=== PATIENT | male | born 1980 | race Caucasian/White ===

== ENCOUNTER 2022-07-03 19:32 | Emergency (ER) | payer OTHER ==
[~2022-07-03] VITALS: Ht 175.3 cm; Wt 58.1 kg
[2022-07-03 19:40] VITALS: BP 113/64
[2022-07-03] MEDS ORDERED: TETANUS,DIPTH,PERTUSS P/F (BOOSTRIX) 0.5 ML VIAL IM ONE (20:00)
--- NOTE | 2022-07-03 20:11 | ED Integumentary General ---
General Chief Complaint: Skin/Wound Problems Stated Complaint: RIGHT HAND INJ Nursing Triage Note: PT AMB TO [facility] OF W REPORTS OF LEFT INDEX FINGER CUT BY BOX KNIFE AT APPROX 1915 THIS PM. PT REPORTS UNK TETANUS STATUS, SUPERFICIAL CUT NOTED DURING TRIAGE. PT A&OX4. Source: patient Exam Limitations: no limitations History of Present Illness Date Seen by Provider: July 03, 2022 Time Seen by Provider: 19:59 Initial Comments Patient cut his left index finger with a box knife. Does not know when his last tetanus shot was. No other injuries. All other systems reviewed and negative except documented per HPI. Voice recognition software was used to help create this chart Allergies and Home Medications Allergies Coded Allergies: No Known Drug Allergies (Unverified , 07/03/22) Patient Home Medication List Home Medication List Reviewed: Yes Review of Systems Review of Systems Constitutional: see HPI Past Acmcknl-Ucdaph-Vdgana Hx Patient Social History Tobacco Use?: No Use of E-Cig and/or Vaping dev: No Substance use?: No Alcohol Use?: No Immunizations Up To Date Influenza Vaccine Up-to-Date: Yes; Up-to-Date First/Initial COVID19 Vaccinat: UNK Second COVID19 Vaccination Noel: UNK Third COVID19 Vaccination Date: UNK COVID19 Vaccine 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 Skin motor and sensory intact.) Progress/Results/Core Measures Results/Orders My Orders Orders - NGOC HERNÁNDEZ DO Hand 3 View Right (07/03/22 19:35) Dipht,Pertuss(Acell),Tet Adult (Boostrix (07/03/22 20:00) Medications Given in ED Current Medications Medications Dose Ordered Sig/Karson Route Start Time Stop Time Status Last Admin Dose Admin Diphtheria/ Tetanus/Acell Pertussis 0.5 ml ONCE ONCE IM 07/03/22 20:00 07/03/22 20:01 DC 07/03/22 20:05 0.5 ML Vital Signs/I&O 07/03/22 19:40 Temp 36.1 Pulse 97 Resp 18 B/P (MAP) 113/64 (80) Pulse Ox 98 O2 Delivery Room Air Blood Pressure Mean: 80 Departure Communication (Admissions) Wound does not require stitches. Tetanus updated. Impression Primary Impression: Abrasion of left index finger Qualified Codes: S60.411A - Abrasion of left index finger, initial encounter Disposition: HOME, SELF-CARE Condition: Stable Departure-Patient Inst. Referrals: NO,LOCAL PHYSICIAN (PCP) Primary Care Physician Patient Instructions: Abrasions ED Add. Discharge Instructions: Your wound does not require stitches. Keep it covered when working to avoid contamination. Wash your hands frequently. Your tetanus shot was updated today. Return to the emergency department for any redness streaking up your hand or arm or drainage looks like pus All discharge instructions reviewed with patient and/or family. Voiced understanding. NGOC HERNÁNDEZ DO July 03, 2022 20:11
== END 2022-07-03 20:12 | disposition home or self-care (01) ==
LOC: ER FS 19:38
DX: S61.211A Laceration without foreign body of left index finger without damage to nail, initial encounter (principal); Z23 Encounter for immunization; W26.0XXA Contact with knife, initial encounter
CPT/HCPCS: 90715; 99284